=== PATIENT | male | born 1985 | race Caucasian/White ===

== ENCOUNTER 2022-08-24 15:08 | Emergency (ER) | payer OTHER, SELFPAY ==
[2022-08-24 15:15] VITALS: BP 130/85; PULSE 104; RESP 18; TEMP 36.5; O2SAT 97; BMI 24.9
[2022-08-24 15:39] VITALS: BP 126/98; PULSE 91; O2SAT 96
--- NOTE | 2022-08-24 15:42 | ED.ALLEREA ---
HPI - Allergic Reaction General Time Seen by Provider: 15:43 Date Seen: 08/24/22 Chief complaint: Allergic Reaction Stated complaint: Hives/Allergic reaction Time Seen by Provider: 08/24/22 15:42 Source: patient and RN notes reviewed Mode of arrival: ambulatory Limitations: no limitations History of Present Illness HPI narrative: Patient is a 36-year-old gentleman who is coming in with hives. He feels like he had a maybe a small 1 on his right hip area last night but really noticed them this morning. He will heartburn, 1 diarrheal stool. No abdominal pain, no nausea or vomiting. This morning he felt like his lips and tongue were numb and tingly, swollen. They are better now. No difficulty breathing. He does not recollect ever having hives before. He states he is not feeling ill at all at this time. No fevers or chills. He did start a new shampoo but has not use the shampoo in temporal relationship of the hives. Cannot think of any new foods that he has eaten that might have done this. He is on Adderall and has been on it for about a year. The hives were worsening even before he took his medicine this morning. He has not taken anything for it. No sore throat. MD complaint: hives Related Data Home Medications Medication Instructions Recorded Confirmed Adderall 08/24/22 Previous Rx's Medication Instructions Recorded prednisone 20 mg tablet 20 mg PO BID #10 tabs 08/24/22 Allergies Allergy/AdvReac Type Severity Reaction Status Date / Time No Known Drug Allergies Allergy Verified 08/24/22 15:18 Review of Systems Status of ROS Reports: 6 or more systems reviewed and unremarkable except as noted in History and below PFSH PFS Social History Smoking Status: Current some day smoker Do you use any of these nicotine containing products: Vaping Products Second hand tobacco smoke exposure: No How often do you have a drink containing alcohol: monthly or less How many standard drinks containing alcohol do you have on a typical day: 3 or 4 How often do you have six or more drinks on one occasion: Never AUDIT-C Alcohol total score: 2 Non-prescribed substance use: denies use service: No Exam Const: Vital Signs, click to edit/add: Vital Signs - 24 hr 08/24/22 15:15 08/24/22 15:39 Temperature 97.7 F Pulse Rate [Right Pulse Oximeter] 104 H 91 Respiratory Rate 18 Blood Pressure [Le ft Upper Arm] 126/98 H Blood Pressure [Ri ght Upper Arm] 130/85 Pulse Oximetry 97 96 Oxygen Delivery Me thod Room Air Room Air Documenting provider has reviewed patient's vital signs: yes Common normals: no apparent distress, average body habitus, oriented x3, no limitations, healthy appearing, alert and well nourished General appearance: cooperative, comfortable and well kempt HENMT: Common normals: normocephalic, head/scalp atraumatic, hearing grossly normal bilaterally, external ears normal, external nose normal, nasal mucous membranes and turbinates normal, moist oral mucous membranes, oropharynx normal, dentition normal and gingiva normal Head and scalp: normocephalic and atraumatic Nose: external nose normal and nasal mucous membranes and turbinates normal External ear: external ears normal Eye: Common normals: PERRL, EOMs intact bilaterally, conjunctivae normal and no scleral icterus Conjunctiva: conjunctiva(e) normal Pupil: PERRL Neck & C-Spine: Common normals: full ROM, no lymphadenopathy, supple, no meningeal signs, no JVD and thyroid normal Thyroid: thyroid normal Resp: Common normals: normal respiratory effort, no retractions, no use of accessory muscles and clear to auscultation bilaterally Auscultation: clear to auscultation bilaterally Cardio: Common normals: no JVD, regular rate, regular rhythm, S1 normal heart sound, S2 normal heart sound, no gallops, no clicks and no murmurs Rate: regular rate Rhythm: regular rhythm Heart sounds: S1 normal and S2 normal GI: Common normals: Normal to inspection, nondistended, normoactive bowel sounds present, soft to palpation, non-tender and no hepatosplenomegaly Palpation: soft and no hepatosplenomegaly Neuro: Common normals: oriented x3 Sensorium/orientation: alert Meningeal signs: no meningeal signs Psych: Appearance: well kempt Skin: Narrative: Has well demarcated hives in his antecubital fossa and along the waistband area of his underwear/pants. I do not see hives elsewhere at this time. No other skin lesions or rashes noted. Course Course Hospital Course: Discussed with patient that hives often are idiopathic and we never do find the etiology. He will keep an eye out for possible temporal relationship to his Adderall. Certainly does not sound like it but he understands it could be a possibility. I did offer testing for things like COVID, blood work. At this time he declines. I do think treatment and ongoing observation without laboratory evaluation for this patient is definitely reasonable. He has no sore throat, would not consider strep to be high a on the etiologies of causing this. With the heartburn diarrhea he had this morning, could be associated to a viral illness. He did decide that he wanted a dose of Zyrtec here, 10 mg was ordered. Vital Signs Vital signs: Initial Vital Signs Temperature 97.7 F 08/24/22 15:15 Temperature Source Temporal Artery Scan 08/24/22 15:15 Pulse Rate 104 H 08/24/22 15:15 Respiratory Rate 18 08/24/22 15:15 Blood Pressure 130/85 08/24/22 15:15 Blood Pressure Mean 100 08/24/22 15:15 Blood Pressure Position Sitting 08/24/22 15:15 Pulse Oximetry 97 08/24/22 15:15 Oxygen Delivery Method 08/24/22 15:15 Vital Signs Temperature 97.7 F 08/24/22 15:15 Pulse Rate 104 H 08/24/22 15:15 Respiratory Rate 18 08/24/22 15:15 Blood Pressure 130/85 08/24/22 15:15 Pulse Oximetry 97 08/24/22 15:15 Oxygen Delivery Method 08/24/22 15:15 Temperature 97.7 F 08/24/22 15:15 Pulse Rate 91 08/24/22 15:39 Respiratory Rate 18 08/24/22 15:15 Blood Pressure 126/98 H 08/24/22 15:39 Pulse Oximetry 96 08/24/22 15:39 Oxygen Delivery Method 08/24/22 15:39 Critical Care Time Critical Care Time Critical Care Time: No Discharge Plan Discharge Clinical Impression: Urticaria Condition: Stable Instructions: Urticaria (ED) Additional Instructions: Take Zyrtec or Claritin twice daily until the hives have resolved. Can still use Benadryl as needed for itching or acute hives, follow package dose instructions. Start prednisone and take as prescribed. You can use ice packs on areas that are really itchy. Heat will bring out hives and itching. If you are worsening at any point, feel you have lip or oral swelling/throat swelling, any difficulty breathing, have further concerns, please seek re-evaluation. If you just have ongoing hives that are not going away, may need to see Dermatology. Activity Level: Activity as Tolerated Prescriptions: New prednisone 20 mg tablet 20 mg PO BID Qty: 10 0RF No Action Adderall Stand Alone Forms: [employer] Info Instructions
--- NOTE | 2022-08-24 16:58 | ED.NURSE ---
had wanted the cetririzine 10 mg prior to dc. did not wait and left the department before this was able to be given. 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
== END 2022-08-24 16:30 | disposition home or self-care (01) ==
PROVIDERS: Emergency Provider Family Medicine
DX: L50.9 Urticaria, unspecified (principal); F17.210 Nicotine dependence, cigarettes, uncomplicated
CPT/HCPCS: 99283